=== PATIENT | female | born 1995 | race Caucasian/White ===

== ENCOUNTER 2018-01-01 16:26 | Emergency (ER) | payer OTHER ==
[~2018-01-01] VITALS: Ht 172.7 cm; Wt 112.0 kg
[2018-01-01 16:28] VITALS: TEMP 37; Ht 172.7 cm; Wt 112.0 kg
--- NOTE | 2018-01-01 16:46 | EMERGENCY ROOM VISIT NOTE ---
History Report prepared by Salvador: Chela Welch Under the Supervision of: Dr. Fabricio Macias M.D. First contact with patient: 16:31 Chief Complaint: HYPERTENSION Stated Complaint: HIGH BLOOD PRESSURE History of Present Illness The patient is a 22 year old female who presents to the Emergency Room with complaints of sudden hypertension starting today. The patient states that she had a physical today for the first time in a while and they told her that her blood pressure was elevated. She states that they told her to come to the ED for it. She states that she did not know it was high and reports that she has had no symptoms of feeling off. She states that she has had high blood pressure in the past, but nothing this high. The patient notes that she is on control and she has a family history of hypertension. The patient denies a history of thyroid issues, taking any medications over the counter recently, headache, chest pain, shortness of breath, urinary symptoms, and swelling in her legs. Source of History: patient Onset: today Position: other (global) Quality: other (hypertension) Timing: other Associated Symptoms: No headache, No chest pain, No SOB, No urinary symptoms Note: The patient denies feeling off and swelling in her legs. Review of Systems See HPI for pertinent positives & negatives. A total of 10 systems reviewed and were otherwise negative. Past Medical & Surgical Social History Problems: (1) Uses control Family History Hypertension Social History Smoking Status: Never Smoker Marital Status: in relationship Housing Status: lives with significant other Current/Historical Medications Scheduled Amlodipine Besylate (Norvasc), 1 TAB PO DAILY Control Pills ( Control Pills), 1 TAB PO DAILY Allergies Coded Allergies: Penicillins (Verified Allergy, Intermediate, Rash, 01/01/18) Physical Exam Vital Signs Date Time Temp Pulse Resp B/P (MAP) Pulse Ox O2 Delivery O2 Flow Rate FiO2 01/01/18 17:57 99 18 154/112 99 01/01/18 17:48 99 18 99 Room Air 154/112 01/01/18 17:16 149/117 01/01/18 17:15 86 19 96 01/01/18 17:03 94 01/01/18 17:01 155/114 01/01/18 16:35 178/102 01/01/18 16:28 37.0 94 18 182/119 100 Room Air Physical Exam GENERAL: Patient is in no acute distress. HEENT: No acute trauma, normocephalic atraumatic, mucous membranes moist, no nasal congestion, no scleral icterus. NECK: No stridor, no adenopathy, no meningismus, trachea is midline. LUNGS: Clear to auscultation bilaterally, no wheeze, no rhonchi, breath sounds equal. HEART: Without murmurs gallops or rubs, regular rate and rhythm. ABDOMEN: Soft, nontender, bowel sounds positive, no hernias, no peritonitis. EXTREMITIES: No cyanosis or edema, full range of motion of all the joints without pain or difficulty, no signs for acute trauma. NEUROLOGIC: Oriented x 3, no acute motor or sensory deficits, no focal weakness. SKIN: No rash, no jaundice, no diaphoresis. Medical Decision & Procedures ER Provider Diagnostic Interpretation: Radiology results as stated below per my review and radiologist interpretation: CHEST ONE VIEW PORTABLE HISTORY: high blood press, poss enlarged heart COMPARISON: None. FINDINGS: The lungs are clear. Cardiac silhouette is normal in size. No pleural effusions. No pneumothorax. IMPRESSION: No acute process. Electronically signed by: Jose Cruz M.D. 01/01/2018 4:54 PM Dictated Date/Time: 01/01/2018 4:54 PM Laboratory Results 01/01/18 16:45 01/01/18 16:45 Test 01/01/18 16:45 01/01/18 16:50 Red Blood Count 5.11 M/uL (4.2-5.4) Mean Corpuscular Volume 84.1 fL (80-100) Mean Corpuscular Hemoglobin 28.8 pg (25-34) Mean Corpuscular Hemoglobin Concent 34.2 g/dl (32-36) RDW Standard Deviation 41.0 fL (36.4-46.3) RDW Coefficient of Variation 13.6 % (11.5-14.5) Mean Platelet Volume 9.0 fL (7.4-10.4) Anion Gap 7.0 mmol/L (3-11) Est Creatinine Clear Calc Drug Dose 146.6 ml/min Estimated GFR () 123.2 Estimated GFR (Non- 106.3 BUN/Creatinine Ratio 11.9 (10-20) Calcium Level 9.1 mg/dl (8.5-10.1) Total Bilirubin 0.3 mg/dl (0.2-1) Aspartate Amino Transf (AST/SGOT) 15 U/L (15-37) Alanine Aminotransferase (ALT/SGPT) 18 U/L (12-78) Alkaline Phosphatase 85 U/L (45-117) Total Creatine Kinase 83 U/L (26-192) Total Protein 7.9 gm/dl (6.4-8.2) Albumin 3.3 gm/dl (3.4-5.0) Globulin 4.6 gm/dl (2.5-4.0) Albumin/Globulin Ratio 0.7 (0.9-2) Thyroid Stimulating Hormone (TSH) 1.400 uIu/ml (0.300-4.500) Urine Color YELLOW Urine Appearance CLOUDY (CLEAR) Urine pH 6.5 (4.5-7.5) Urine Specific [place] 1.020 (1.000-1.030) Urine Protein TRACE (NEG) Urine Glucose (UA) NEG (NEG) Urine Ketones NEG (NEG) Urine Occult Blood 1+ (NEG) Urine Nitrite NEG (NEG) Urine Bilirubin NEG (NEG) Urine Urobilinogen NEG (NEG) Urine Leukocyte Esterase TRACE (NEG) Urine WBC (Auto) 5-10 /hpf (0-5) Urine RBC (Auto) 10-30 /hpf (0-4) Urine Hyaline Casts (Auto) 1-5 /lpf (0-5) Urine Epithelial Cells (Auto) >30 /lpf (0-5) Urine Bacteria (Auto) 1+ (NEG) Urine Test NEG (NEG) Laboratory results reviewed by me. Medications Administered Medications (Trade) Dose Ordered Sig/Usha Route Start Time Stop Time Status Last Admin Dose Admin Amlodipine Besylate (Norvasc Tab) 5 mg NOW ONCE PO 01/01/18 17:30 01/01/18 17:31 DC 01/01/18 17:48 5 MG ECG Per My Interpretation Indication: other (hypertension) Rate (beats per minute): 91 Rhythm: normal sinus Findings: no ectopy, other (no ST elevation, no PVCs) ED Course 163: The patient was evaluated in room C12B. A complete history and physical exam was performed. 1729: Ordered Norvasc Tab 5 mg PO. 1747: Reevaluated the patient. Discussed results and discharge instructions: She verbalized understanding and agreement. The patient is ready for discharge. Medical Decision Differential diagnoses include essential hypertension, situational hypertension , renal failure, electrolyte imbalance, cardiac strain, UTI, . There is a very mild leukocytosis, this could be consistent with infection or just the stress of her current situation. No anemia. No significant electrolyte abnormality, kidney failure or hepatitis. The patient appears to be in a euthyroid state. testing is negative. Urinalysis shows contamination, no obvious infection. EKG shows a normal sinus rhythm, no acute ischemia. Chest film does not show mediastinal widening, cardiomegaly or CHF. The patient presents asymptomatic but hypertensive. She is being discharged on oral Norvasc. She was given a 5 mg dose here prior to discharge. She will follow with her doctors office for potential medication adjustments. She will keep a log of her blood pressure for her doctor's office. If she has any pain in her chest or if she feels short of breath, she can return to the ER for reassessment. Her hypertension is likely familial. Medication Reconcilliation Current Medication List: was personally reviewed by me Blood Pressure Screening Patient's blood pressure: Elevated blood pressure Blood pressure disposition: Referred to PCP Impression Primary Impression: Hypertension Scribe Attestation The scribe's documentation has been prepared under my direction and personally reviewed by me in its entirety. I confirm that the note above accurately reflects all work, treatment, procedures, and medical decision making performed by me. Departure Information Dispostion Home / Self-Care Prescriptions Amlodipine Besylate (NORVASC) 5 Mg Tab 1 TAB PO DAILY for 14 Days, #14 TAB 5 Refills Prov: Fabricio Macias M.D. 01/01/18 Referrals No Doctor, Assigned (PCP) Forms HOME CARE DOCUMENTATION FORM, IMPORTANT VISIT INFORMATION, WORK / SCHOOL INSTRUCTIONS Patient Instructions My [facility] Additional Instructions norvasc daily for your blood pressure keep a log of you blood pressure readings set up an appt with your doctor for a recheck this week--you may need adjustments made to your medications lab testing and imaging and ECG were ok today
--- NOTE | 2018-01-01 16:55 | DIAGNOSTIC IMAGING REPORT ---
CHEST ONE VIEW PORTABLE HISTORY: high blood press, poss enlarged heart COMPARISON: None. FINDINGS: The lungs are clear. Cardiac silhouette is normal in size. No pleural effusions. No pneumothorax. IMPRESSION: No acute process. Electronically signed by: Jose Cruz M.D. 01/01/2018 4:54 PM Dictated Date/Time: 01/01/2018 4:54 PM
[2018-01-01 16:58] LABS: HEMOGLOBIN 14.7 g/dL (12.0-16.0); MEAN CELL VOLUME 84.1 fL (80-100); MEAN CORPUSCULAR HEMOGLOBIN 28.8 pg (25-34); MEAN CORPUSCULAR HGB CONC 34.2 g/dl (32-36); PLATELET COUNT 396 K/uL (130-400); RED CELL DISTRIBUTION WIDTH CV 13.6 % (11.5-14.5); WHITE BLOOD COUNT 11.22 K/uL (4.8-10.8)
[2018-01-01] MEDS ORDERED: BCPILLS PO (17:09)
[2018-01-01 17:26] LABS: ALBUMIN 3.3 gm/dl (3.4-5.0); CALCIUM 9.1 mg/dl (8.5-10.1); CREATININE 0.79 mg/dl (0.60-1.20); POTASSIUM 3.7 mmol/L (3.5-5.1); TOTAL PROTEIN 7.9 gm/dl (6.4-8.2)
[2018-01-01] MEDS ORDERED: AMLODIPINE BESYLATE 5 MG TAB PO ONE (17:30)
[2018-01-01] MEDS ORDERED: AMLO5TAB2 PO (17:52)
[2018-01-01 17:57] VITALS: BP 154/112; PULSE 99; O2SAT 99
== END 2018-01-01 17:55 | disposition home or self-care (01) ==
LOC: C.EDB 16:27 → C.EDC 17:55
DX: I10 Essential (primary) hypertension (principal); Z79.3 Long term (current) use of hormonal contraceptives; Z79.899 Other long term (current) drug therapy; Z82.49 Family history of ischemic heart disease and other diseases of the circulatory system; Z88.0 Allergy status to penicillin; D72.829 Elevated white blood cell count, unspecified